=== PATIENT | male | born 1950 | race Caucasian/White ===

== ENCOUNTER 2020-08-31 08:42 | Emergency (ER) | payer OTHER ==
[~2020-08-31] VITALS: Ht 162.6 cm; Wt 63.0 kg
[~2020-08-31 08:42] MED LIST: INSULIN
[2020-08-31] MEDS ORDERED: IBUP-2029 MT (09:22)
[2020-08-31] MEDS ORDERED: IBUPROFEN 600MG TABLET PO ONE (09:30)
[2020-08-31 09:32] VITALS: BP 160/78
== END 2020-08-31 09:34 | disposition home or self-care (01) ==
LOC: ER 08:42
DX: L84 Corns and callosities (principal); M79.675 Pain in left toe(s); E11.9 Type 2 diabetes mellitus without complications
CPT/HCPCS: 99282; 99283

== ENCOUNTER 2020-09-02 08:22 | Emergency (ER) | payer BC, OTHER ==
[~2020-09-02] VITALS: Ht 167.6 cm; Wt 62.0 kg
[~2020-09-02 08:22] MED LIST changes: +IBUP-2029 MT
[2020-09-02] MEDS ORDERED: ACET-2708 MT (09:42)
[2020-09-02 09:51] VITALS: BP 174/82
== END 2020-09-02 09:52 | disposition home or self-care (01) ==
LOC: ER 08:22
DX: L84 Corns and callosities (principal); E11.9 Type 2 diabetes mellitus without complications; Z90.49 Acquired absence of other specified parts of digestive tract
CPT/HCPCS: 99282

== ENCOUNTER 2022-01-22 22:26 | Emergency (ER) | payer BC, OTHER ==
[~2022-01-22] VITALS: Ht 157.5 cm; Wt 61.0 kg
[~2022-01-22 22:26] MED LIST changes: +ACET-2708 MT
[2022-01-23] MEDS ORDERED: TOPUD PO (01:53)
[2022-01-23] MEDS ORDERED: IBUP-2028 MT (01:53)
[2022-01-23 02:21] VITALS: BP 118/78
== END 2022-01-23 02:20 | disposition home or self-care (01) ==
LOC: ER 22:26
DX: S51.011A Laceration without foreign body of right elbow, initial encounter (principal); E11.9 Type 2 diabetes mellitus without complications; F32.A Depression, unspecified; Z90.49 Acquired absence of other specified parts of digestive tract; Z79.4 Long term (current) use of insulin; W01.190A Fall on same level from slipping, tripping and stumbling with subsequent striking against furniture, initial encounter; Y93.89 Activity, other specified; Y92.018 Other place in single-family (private) house as the place of occurrence of the external cause
CPT/HCPCS: 12002; 99282

== ENCOUNTER 2022-02-02 15:03 | Emergency (ER) | payer BC, OTHER ==
[~2022-02-02] VITALS: Ht 162.6 cm; Wt 61.0 kg
[~2022-02-02 15:03] MED LIST changes: +IBUP-2028 MT; +TOPUD PO
[2022-02-02 15:16] VITALS: BP 117/51
== END 2022-02-02 17:43 | disposition home or self-care (01) ==
LOC: ER 15:15
DX: Z48.02 Encounter for removal of sutures (principal)
CPT/HCPCS: 99281

== ENCOUNTER 2022-03-25 09:48 | Emergency (ER) | payer BC ==
[~2022-03-25] VITALS: Ht 165.1 cm; Wt 61.0 kg
[2022-03-25 11:20] LABS: BASOPHILS % 0.7 % (0.0-2.0); EOSINOPHILS % 2.3 % (0.0-5.0); HEMATOCRIT. 39.4 % (42.0-52.0); HEMOGLOBIN. 13.6 g/dL (14.0-18.0); LYMPHOCYTES % 19.4 % (20.0-50.0); MEAN CORPUSCULAR HEMOGLOBIN 32.1 pg (28.0-32.0); MEAN CORPUSCULAR VOLUME 93.3 fL (80.0-94.0); MEAN PLATELET VOLUME 7.2 fl (7.4-10.4); MONOCYTES % 6.6 % (2.0-8.0); PLATELET 233 x1000/uL (130-400); RED BLOOD CELL COUNT 4.22 mill/uL (4.7-6.1); RED CELL DISTRIBUTION WIDTH 12.9 % (11.6-14.6)
[2022-03-25 11:26] LABS: CHLORIDE 100 mEq/L (98-107)
[2022-03-25 12:06] VITALS: BP 143/70
== END 2022-03-25 12:38 | disposition home or self-care (01) ==
LOC: ER 10:12
DX: R00.2 Palpitations (principal); E11.9 Type 2 diabetes mellitus without complications; F32.A Depression, unspecified; Z90.49 Acquired absence of other specified parts of digestive tract
CPT/HCPCS: 36415; 71045; 80053; 83880; 84484; 85025; 93005; 99285

== ENCOUNTER 2022-11-19 15:08 | Emergency (ER) | payer BC, OTHER ==
[~2022-11-19] VITALS: Ht 165.1 cm; Wt 64.4 kg
[2022-11-19 15:15] VITALS: O2SAT 97
[2022-11-19] MEDS ORDERED: ACETAMINOPHEN 325MG TABLET PO ONE (17:00)
[2022-11-19] MEDS ORDERED: LIDO700A15 TP (18:57)
[2022-11-19] MEDS ORDERED: TOPUD MT (18:57)
[2022-11-19] MEDS ORDERED: LIDOCAINE 5% PATCH TOP SCH (19:00)
[2022-11-19 19:10] VITALS: BP 148/62; PULSE 78; RESP 18; TEMP 97.9
== END 2022-11-19 19:19 | disposition home or self-care (01) ==
LOC: ER 15:08
DX: S20.211A Contusion of right front wall of thorax, initial encounter (principal); S60.221A Contusion of right hand, initial encounter; G89.11 Acute pain due to trauma; V26.49XA Other motorcycle driver injured in collision with other nonmotor vehicle in traffic accident, initial encounter; Y93.89 Activity, other specified; Y92.89 Other specified places as the place of occurrence of the external cause; Y99.8 Other external cause status; Z79.899 Other long term (current) drug therapy
CPT/HCPCS: 71250; 73130; 99284